=== PATIENT | female | born 1995 | race American Indian/Alaskan Native ===

== ENCOUNTER 2016-11-29 12:32 | Emergency (ER) | payer SELFPAY ==
[2016-11-29 12:44] VITALS: BP 120/77
[2016-11-29] MEDS ORDERED: TYLENOL PO ONE (17:20)
--- NOTE | 2016-11-29 17:21 | Emergency Department Report ---
HPI - General Chief Complaint: Pain General Time Seen by Provider: 11/29/16 17:16 - HPI HPI: Patient is a 21-year-old who reports last menstrual period 09/11/2016 complaining of left-sided leg pain. Patient states she recently moved here to the abdomen area and has not been for her but she states she is . Patient states she has not received care for this . The patient describes pain localized to the lower back and radiates down anterior left leg. Patient denies any radiation elsewhere. Patient denies calf tenderness bilaterally. Patient denies fevers/chills/nausea/vomiting/chest pain/shortness of breath/ dizziness/injury to leg, vaginal bleeding or vaginal discharge. ED Past Medical Hx - Past Medical History Previous Medical History?: Yes Additional medical history: vaginal delivery x 1 11-28-2015 - Surgical History Past Surgical History?: No - Social History Smoking Status: Never Smoker Substance Use Type: Non Opiate Pain, Other - Medications Home Medications: Home Medications Medication Instructions Recorded Confirmed Last Taken Type Acetaminophen [Acetaminophen ER 650 mg PO Q8HR PRN #40 tablet.er 11/29/16 Unknown Rx TAB] Nitrofurantoin Gregg/M-Cryst 100 mg PO Q12HR #14 capsule 11/29/16 Unknown Rx [Macrobid CAP] Pnv95/Ferrous Fumarate/FA 1 each PO DAILY #60 tablet 11/29/16 Unknown Rx [ Formula Tablet] ED Review of Systems ROS: Stated complaint: LFT SIDE BODY PAIN Other details as noted in HPI Constitutional: denies: chills, fever Eyes: denies: eye pain, eye discharge, vision change ENT: denies: ear pain, throat pain Respiratory: denies: cough, shortness of breath, wheezing Cardiovascular: denies: chest pain, palpitations Endocrine: no symptoms reported Gastrointestinal: denies: abdominal pain, nausea, vomiting, diarrhea, constipation, melena, hematochezia Genitourinary: denies: urgency, dysuria, frequency, hematuria, discharge Musculoskeletal: denies: back pain, joint swelling, arthralgia, myalgia Skin: denies: rash, lesions Neurological: denies: headache, weakness, numbness, paresthesias, confusion, abnormal gait Psychiatric: denies: anxiety, depression Hematological/Lymphatic: denies: easy bleeding, easy bruising Physical Exam - Physical Exam Vital Signs: Vital Signs 11/29/16 12:39 Temperature 98.5 F Pulse Rate 119 H Respiratory 20 Rate Blood Pressure 120/77 O2 Sat by Pulse 100 Oximetry Physical Exam: GENERAL: Alert and oriented x3, no apparent distress, Normal Gait with mild limp , atraumatic. HEAD: Head is normocephalic and a-traumatic. EYES: Extra ocular muscles are intact. Pupils are equal, round, and reactive to light and accommodation. EARS: symetrical, atraumatic, non tender, gross auditory nml bilaterally. NOSE: Nose symetrical, Nontender,Nares appeared normal. MOUTH:Mouth is well hydrated and without lesions. . Patent airways. NECK: Supple. Non edematous, No carotid bruits. No lymphadenopathy or thyromegaly. LUNGS: Symetrical with respiration, No wheezing, no rales or crackles, CTAB. HEART: S1, S2 present, regular rate and rhythm without murmur, no rubs, no gallops. ABDOMEN: No organomegaly was noted,Positive bowel sounds, soft, and non- distended. . Nontender to palpation on all Quadrants, NO CVA tenderness. EXTREMITIES/MUSCULOSKELETAL: No cyanosis, clubbing, rash, lesions or edema. Full ROM bilaterally. UE/LE Pulses 2+ bilaterally. Left leg 3+plus strength. Straight leg raise positive on the left leg NEUROLOGIC: No focal Deficit, Cranial nerves II through XII are grossly intact. No loss of sensation, . PSYCHIATRIC: Mood is congruent with affect, denies suicidal or homicidal ideations. SKIN: Warm and dry, No lesions, No ulceration or induration present. ED Course Vital Signs 11/29/16 12:39 Temperature 98.5 F Pulse Rate 119 H Respiratory 20 Rate Blood Pressure 120/77 O2 Sat by Pulse 100 Oximetry ED Medical Decision Making - Medical Decision Making 21-year-old female presents with a sciatic pain in /UTI. ED course: Patient received 5 mg of tylenol. Urinalysis is +2+ bacteria, 133 WBC, with hematuria and trace ketones. Ultrasound: ultrasound shows single intrauterine at 12 weeks 0 days with EGD of 06/13/2017 with cardiac activity at 177 bpm Will treat treat UTI MacroBid 100 mg twice a day 7 Discussed with patient need for care. Discussed OB referral and to make an appointment as soon as possible. Discussed with patient symptomatic relief with Tylenol, heat applicatiion. Discussed findings with patient. She verbally states she understands and will comply to follow-up. Critical care attestation.: If time is entered above; I have spent that time in minutes in the direct care of this critically ill patient, excluding procedure time. ED Disposition Clinical Impression: Cystitis, Round ligament pain, Sciatic leg pain Normal IUP (intrauterine ) on ultrasound Qualifiers: Trimester: first trimester Qualified Code(s): Z34.91 - Encounter for supervision of normal , unspecified, first trimester Disposition: DISCHARGED TO HOME OR SELFCARE Is pt being admited?: No Does the pt Need Aspirin: No Condition: Stable Instructions: (ED), Flank Pain (ED), Urinary Tract Infection in Women (ED), Lumbar Radiculopathy (ED), Sciatica (ED) Additional Instructions: Take medication as prescribed. Follow-up with [facility] as referred. Prescriptions: Acetaminophen [Acetaminophen ER TAB] 650 mg PO Q8HR PRN #40 tablet.er PRN Reason: Pain Nitrofurantoin Gregg/M-Cryst [Macrobid CAP] 100 mg PO Q12HR #14 capsule Pnv95/Ferrous Fumarate/FA [ Formula Tablet] 1 each PO DAILY #60 tablet Referrals: PRIMARY CARE, [Primary Care Provider] - 3-5 Days LAKISHA BOGGS MD [Referring] - 3-5 Days KALIN CAVAZOS MD [Referring] - 3-5 Days CLYDE CAVAZOS MD [Staff Physician] - 3-5 Days [facility] [Outside] - 3-5 Days Forms: Work/School Release Form(ED) Time of Disposition: 22:04
--- NOTE | 2016-11-29 19:48 | Ultrasound Report ---
FINAL REPORT PROCEDURE: US OB \T\lt; = 14 WEEKS FETUS TECHNIQUE: Real-time transabdominal sonography of the uterus, placenta, amniotic fluid, adnexa, and fetus was performed with image documentation. Measurements were obtained to determine age/size. M-mode Doppler was used to document heartbeat. CPT 32222 HISTORY: Pelvic pain COMPARISON: No prior studies are available for comparison. FINDINGS: CRL: 53 mm, which corresponds to a gestational age of: 12 weeks, 0 days. Yolk Sac: Not visualized Embryonic Cardiac Activity: 177 beats per minute Gestational Sac: There is a crescentic anechoic structure abutting the gestational sac, measuring 2.2 x 1.6 x 1.0 centimeters, possibly a small subchorionic hemorrhage orpossibly 2nd gestational sac, which does not contain a pole or yolk sac. Amniotic fluid: Normal. Cervix: Normal. Right Ovary: There is a complex 2.5 centimeter cyst Left Ovary: Normal. Estimated delivery date: 06/13/2017 IMPRESSION: Live intrauterine gestation at approximately 12 weeks 0 days. EDC by US 06/13/2017. Crescentic small anechoic structure which abuts the gestational sac could be related to a small subchorionic hemorrhage or possibly a 2nd empty gestational sac.
[2016-11-29 21:04] LABS: Bacteria,Urine 2+ /HPF (Negative); Bilirubin,Urine NEG (Negative); Blood,Urine SM (Negative); Ketones,Urine TR mg/dL (Negative); Leukocyte Esterase,Urine LG (Negative); Mucus,Urine 2+ /HPF; Nitrite,Urine NEG (Negative)
== END 2016-11-29 22:15 | disposition home or self-care (01) ==
LOC: ED 12:32
DX: O23.11 Infections of bladder in pregnancy, first trimester (principal); M54.32 Sciatica, left side; M79.605 Pain in left leg; Z34.91 Encounter for supervision of normal pregnancy, unspecified, first trimester; Z3A.12 12 weeks gestation of pregnancy
CPT/HCPCS: 36415; 76801; 81001; 84702; 87086